=== PATIENT | male | born 1960 | race Caucasian/White ===

== ENCOUNTER 2017-08-22 09:09 | Inpatient (IN) | payer OTHER ==
[2017-08-22] MEDS ORDERED: ACETAMINOPHEN 325 MG TAB PO ×2 (10:00→10:30)
[2017-08-22] MEDS ORDERED: ONDANSETRON 4 MG INJ IV (10:00)
[2017-08-22] MEDS ORDERED: FUROSEMIDE 40 MG INJ IV (10:30)
[2017-08-22] MEDS ORDERED: NACL 0.9% 3 ML SYG IV (10:30)
[2017-08-22] MEDS ORDERED: NITROGLYCERIN (SL) 0.4 MG TAB SL (10:30)
[2017-08-22] MEDS: ASPIRIN 81 MG TAB PO (10:51)
[2017-08-22] MEDS: ENOXAPARIN 40 MG/0.4 ML SYG SC (10:51)
[2017-08-22] MEDS ORDERED: GLUCAGON 1 MG INJ IM (11:30)
[2017-08-22] MEDS ORDERED: DEXTROSE 50% 50 ML SYRINGE IV (11:30)
[2017-08-22] MEDS ORDERED: GLUCOSE GEL 15 GRAM TUBE BUCCAL (11:30)
[2017-08-22] MEDS ORDERED: GLUCOSE GEL 15 GRAM TUBE PO ×2 (11:30)
[2017-08-22] MEDS: INSULIN ASPART [NOVOLOG] 3 ML PEN SC ×5 (11:49→21:00)
[2017-08-22] MEDS: FUROSEMIDE 40 MG INJ IV (17:47)
[2017-08-22] MEDS: ATORVASTATIN 20 MG TAB PO (21:22)
[2017-08-23] MEDS: ACCU-CHEK XX ×2 (02:22→20:45)
[2017-08-23 05:16] LABS: ADD MAN DIFF? NO
[2017-08-23 05:18] LABS: BASOPHIL # 0.1 10^3/ul (0.0-0.1); BASOPHILS % 1.4 % (0.0-2.0); EOSINOPHILS # 0.2 10^3/ul (0.0-0.5); EOSINOPHILS % 2.7 % (0.0-7.0); HEMATOCRIT 38.8 % (42.0-52.0); HEMOGLOBIN 13.3 g/dl (14.0-18.0); LYMPHOCYTES # 2.3 10^3/ul (0.8-2.9); LYMPHOCYTES % 29.3 % (15.0-51.0); MEAN CORPUSCULAR HEMOGLOBIN 31.6 pg (29.0-33.0); MEAN CORPUSCULAR HGB CONC 34.3 g/dl (32.0-37.0); MEAN CORPUSCULAR VOLUME 92.2 fl (82.0-101.0); MEAN PLATELET VOLUME 11.4 fl (7.4-10.4); MONOCYTE # 0.8 10^3/ul (0.3-0.9); MONOCYTES % 9.5 % (0.0-11.0); NEUTROPHIL # 4.5 10^3/ul (1.6-7.5); PLATELET COUNT 148 10^3/UL (140-415); RED BLOOD COUNT 4.21 10^6/ul (4.70-6.10); RED CELL DISTRIBUTION WIDTH 12.3 % (11.5-14.5)
[2017-08-23 05:18] LABS: WHITE BLOOD COUNT 7.9 10^3/ul (4.8-10.8)
[2017-08-23 05:40] LABS: ANION GAP 16 (8-16); BLOOD UREA NITROGEN 23 mg/dl (7-20); CALCIUM 9.1 mg/dl (8.4-10.2); CARBON DIOXIDE 27 mmol/L (21-31); CHLORIDE 104 mmol/L (97-110); GLUCOSE 151 mg/dl (70-220); POTASSIUM 4.1 mmol/L (3.5-5.1); SODIUM 143 mmol/L (135-144)
[2017-08-23] MEDS: FUROSEMIDE 40 MG INJ IV (06:00)
[2017-08-23] MEDS: INSULIN ASPART [NOVOLOG] 3 ML PEN SC ×7 (07:22→20:44)
[2017-08-23] MEDS: DEXTROSE 5%-0.9% NACL 1,000 ML IV (07:23)
[2017-08-23] MEDS: ASPIRIN 81 MG TAB PO (08:39)
[2017-08-23] MEDS: LOSARTAN 25 MG TAB PO (08:39)
[2017-08-23] MEDS: ENOXAPARIN 40 MG/0.4 ML SYG SC (08:42)
[2017-08-23] MEDS ORDERED: LIDOCAINE 1% (MDV) 20 ML INJ (10:28)
[2017-08-23] MEDS ORDERED: IODIXANOL LOCM 100 ML BTL (10:28)
[2017-08-23] MEDS ORDERED: HEPARIN 1000 UNITS/ML 10 ML INJ (10:28)
[2017-08-23] MEDS ORDERED: NITROGLYCERIN (IC) 100 MCG/ML INJ (10:29)
[2017-08-23] MEDS ORDERED: FENTAnyl 50 MCG/ML VIAL (10:29)
[2017-08-23] MEDS ORDERED: MIDAZOLAM 1 MG/ML 2 ML INJ (10:29)
[2017-08-23] MEDS ORDERED: VERAPAMIL 5 MG INJ (10:29)
[2017-08-23] MEDS ORDERED: SOD CHLORIDE 0.9% 500 ML (10:47)
[2017-08-23] MEDS ORDERED: CEFAZOLIN 2 GM/50 ML (PMX) 50 ML IVPB (12:00)
[2017-08-23] MEDS ORDERED: HEPARIN 1000 UNITS/ML 10 ML INJ IV (12:00)
[2017-08-23 12:36] LABS: ADD MAN DIFF? NO
[2017-08-23 12:39] LABS: BASOPHIL # 0.1 10^3/ul (0.0-0.1); EOSINOPHILS # 0.1 10^3/ul (0.0-0.5); EOSINOPHILS % 0.6 % (0.0-7.0); HEMATOCRIT 40.8 % (42.0-52.0); HEMOGLOBIN 14.2 g/dl (14.0-18.0); LYMPHOCYTES # 2.1 10^3/ul (0.8-2.9); LYMPHOCYTES % 18.3 % (15.0-51.0); MEAN CORPUSCULAR HEMOGLOBIN 32.1 pg (29.0-33.0); MEAN CORPUSCULAR HGB CONC 34.8 g/dl (32.0-37.0); MEAN CORPUSCULAR VOLUME 92.3 fl (82.0-101.0); MEAN PLATELET VOLUME 11.2 fl (7.4-10.4); MONOCYTE # 0.8 10^3/ul (0.3-0.9); MONOCYTES % 6.8 % (0.0-11.0); NEUTROPHIL # 8.4 10^3/ul (1.6-7.5); PLATELET COUNT 147 10^3/UL (140-415); RED BLOOD COUNT 4.42 10^6/ul (4.70-6.10)
[2017-08-23 12:39] LABS: WHITE BLOOD COUNT 11.5 10^3/ul (4.8-10.8)
[2017-08-23 12:59] LABS: PROTIME 14.4 Sec (11.9-14.9); PT RATIO 1.1
[2017-08-23 13:01] LABS: PARTIAL THROMBOPLASTIN TIME 66.7 Sec (25.0-35.0)
[2017-08-23] MEDS: HEPARIN 25000 UNITS/250 ML 250 ML IV (16:25)
[2017-08-23] MEDS: FUROSEMIDE 20 MG TAB PO (16:30)
[2017-08-23] MEDS: ATORVASTATIN 20 MG TAB PO (20:36)
[2017-08-23 23:08] LABS: INR 1.09; PROTIME 14.3 Sec (11.9-14.9); PT RATIO 1.1
[2017-08-23 23:09] LABS: PARTIAL THROMBOPLASTIN TIME 49.6 Sec (25.0-35.0)
[2017-08-24] MEDS: INSULIN ASPART [NOVOLOG] 3 ML PEN SC ×9 (01:00→21:00)
[2017-08-24 07:15] LABS: ANION GAP 17 (8-16); BLOOD UREA NITROGEN 19 mg/dl (7-20); CALCIUM 9.2 mg/dl (8.4-10.2); CARBON DIOXIDE 27 mmol/L (21-31); CHLORIDE 104 mmol/L (97-110); CREATININE 0.89 mg/dl (0.61-1.24); GLUCOSE 190 mg/dl (70-220); POTASSIUM 4.5 mmol/L (3.5-5.1); SODIUM 143 mmol/L (135-144)
[2017-08-24 07:17] LABS: PARTIAL THROMBOPLASTIN TIME 69.2 Sec (25.0-35.0)
[2017-08-24] MEDS: ASPIRIN 81 MG TAB PO (08:10)
[2017-08-24] MEDS ORDERED: HEPARIN 1000 UNITS/ML 10 ML INJ ×3 (08:28→14:24)
[2017-08-24] MEDS ORDERED: VANCOMYCIN 1 GM INJ (08:28)
[2017-08-24] MEDS ORDERED: PAPAVERINE 60 MG INJ (08:28)
[2017-08-24] MEDS ORDERED: HEPARIN 1000 UNITS/NS (A-LINE) 0 ML (08:28)
[2017-08-24] MEDS: HEPARIN 1000 UNITS/ML 10 ML INJ IRR (13:00)
[2017-08-24] MEDS: PAPAVERINE 60 MG INJ IRR (13:00)
[2017-08-24] MEDS: VANCOMYCIN 500MG INJ IMPLANTED (13:00)
[2017-08-24] MEDS ORDERED: MIDAZOLAM 5 ML ×2 (13:18→15:07)
[2017-08-24] MEDS ORDERED: PHENYLephrine (100 MCG/ML) 5ML SYG ×5 (13:24→16:29)
[2017-08-24] MEDS ORDERED: MAGNESIUM SULFATE (MG) 50% 10 ML INJ (13:27)
[2017-08-24] MEDS ORDERED: ALBUMIN HUMAN 25% 200 ML (13:27)
[2017-08-24] MEDS ORDERED: PHENYLephrine 10 MG INJ (13:27)
[2017-08-24] MEDS ORDERED: LIDOCAINE 100 MG SYRINGE (13:27)
[2017-08-24] MEDS ORDERED: POTASSIUM CHLORIDE 40 MEQ INJ (13:27)
[2017-08-24] MEDS ORDERED: CA CHLORIDE 10% 10 ML SYRINGE (13:28)
[2017-08-24] MEDS ORDERED: MANNITOL 20% 250 ML IV (13:28)
[2017-08-24] MEDS ORDERED: NA BICARBONATE 8.4% 50 ML SYG (13:29)
[2017-08-24] MEDS ORDERED: AMINOCAPROIC ACID 5 GM INJ (13:29)
[2017-08-24] MEDS ORDERED: PHENYLephrine 20MG IN 250 ML 250 ML IV (13:30)
[2017-08-24] MEDS: NORepinephrine 8MG/250 ML (PMX 250 ML IV (13:30)
[2017-08-24] MEDS: ASPIRIN 600 MG SUPP PR (13:30)
[2017-08-24] MEDS: HEPARIN (10000 UNITS/ML) 10,000 UNIT, MILRINONE LACTATE 10 MG in SOD CHLORIDE 0.9% 1,00... SC (13:30)
[2017-08-24] MEDS: INSULIN HUMAN REGULAR 100 UNIT in SOD CHLORIDE 0.9% 99 ML IVPB (13:30)
[2017-08-24] MEDS: EPINEPHrine 4 MG in DEXTROSE 5% 246 ML IV ×2 (13:30→19:05)
[2017-08-24] MEDS: PHENYLephrine 20 MG in DEXTROSE 5% 250 ML IV (13:30)
[2017-08-24] MEDS: MILRINONE LACTATE 2 MG in SOD CHLORIDE 0.9% 50 ML IV (13:30)
[2017-08-24] MEDS ORDERED: CEFAZOLIN 1 GM INJ ×2 (14:05→16:30)
[2017-08-24] MEDS ORDERED: FUROSEMIDE 20 MG INJ ×2 (15:13→15:52)
[2017-08-24] MEDS ORDERED: PROTAMINE 250 MG INJ (16:29)
[2017-08-24] MEDS ORDERED: ROCURONIUM 50 MG INJ (17:51)
[2017-08-24] MEDS ORDERED: LIDOCAINE 2% (SDV) 5 ML INJ (17:51)
[2017-08-24] MEDS ORDERED: ETOMIDATE 20 MG INJ (17:51)
[2017-08-24] MEDS ORDERED: ALBUMIN HUMAN 5% 250 ML (18:37)
[2017-08-24] MEDS: ALBUMIN HUMAN 5% 250 ML IV ×2 (18:51→22:25)
[2017-08-24] MEDS ORDERED: NITROGLYCERIN 50 MG/D5W (PMX) 250 ML IV ×2 (19:00→19:30)
[2017-08-24] MEDS: DOPamine-D5W 1.6 MG/ML 250 ML IV (19:06)
[2017-08-24 19:07] LABS: ADD MAN DIFF? NO
[2017-08-24 19:10] LABS: ABNORMAL IP MESSAGE 1; BASOPHIL # 0.1 10^3/ul (0.0-0.1); BASOPHILS % 0.5 % (0.0-2.0); EOSINOPHILS # 0.1 10^3/ul (0.0-0.5); EOSINOPHILS % 0.8 % (0.0-7.0); HEMATOCRIT 34.1 % (42.0-52.0); HEMOGLOBIN 11.9 g/dl (14.0-18.0); LYMPHOCYTES # 2.8 10^3/ul (0.8-2.9); LYMPHOCYTES % 15.4 % (15.0-51.0); MEAN CORPUSCULAR HEMOGLOBIN 32.5 pg (29.0-33.0); MEAN CORPUSCULAR HGB CONC 34.9 g/dl (32.0-37.0); MEAN CORPUSCULAR VOLUME 93.2 fl (82.0-101.0); MEAN PLATELET VOLUME 11.5 fl (7.4-10.4); MONOCYTE # 1.2 10^3/ul (0.3-0.9); MONOCYTES % 6.5 % (0.0-11.0); NEUTROPHILS % 76.3 % (39.0-77.0); PLATELET COUNT 84 10^3/UL (140-415); POSITIVE DIFF @See below; RED BLOOD COUNT 3.66 10^6/ul (4.70-6.10); RED CELL DISTRIBUTION WIDTH 12.1 % (11.5-14.5)
[2017-08-24 19:10] LABS: WHITE BLOOD COUNT 18.4 10^3/ul (4.8-10.8)
[2017-08-24 19:27] LABS: ANION GAP 21 (8-16); BLOOD UREA NITROGEN 16 mg/dl (7-20); CALCIUM 8.2 mg/dl (8.4-10.2); CARBON DIOXIDE 25 mmol/L (21-31); CHLORIDE 109 mmol/L (97-110); CREATININE 0.77 mg/dl (0.61-1.24); GLUCOSE 65 mg/dl (70-220); MAGNESIUM 2.5 mg/dl (1.7-2.5); POTASSIUM 3.2 mmol/L (3.5-5.1); SODIUM 152 mmol/L (135-144)
[2017-08-24] MEDS ORDERED: ACETAMINOPHEN 650MG/20.3ML CUP NGT (19:30)
[2017-08-24] MEDS ORDERED: ACETAMINOPHEN 325 MG TAB PO (19:30)
[2017-08-24] MEDS ORDERED: EPINEPHrine 4 MG in DEXTROSE 5% 246 ML IV (19:30)
[2017-08-24] MEDS ORDERED: HYDROmorphONE 0.5 MG/0.5 ML SYG IV ×2 (19:30)
[2017-08-24] MEDS ORDERED: DEXTROSE 50% 50 ML SYRINGE IV ×2 (19:30)
[2017-08-24] MEDS ORDERED: POTASSIUM CHLORIDE 50 ML IVPB (19:30)
[2017-08-24 19:54] LABS: HEMATOCRIT 34.2 % (42.0-52.0)
[2017-08-24] MEDS: POTASSIUM CHLORIDE 40 MEQ, CALCIUM CHLORIDE 10% 1 GM in DEXTROSE 5%-0.225% NACL 1,000 ML IV (20:24)
[2017-08-24] MEDS: MILRINONE LACTATE 100 ML IV (20:24)
[2017-08-24 20:28] LABS: PT RATIO 1.4
[2017-08-24] MEDS ORDERED: DOPamine 800 MG in DEXTROSE 5% 230 ML IV (20:30)
[2017-08-24 20:31] LABS: AADO2 Arterial 352.9 mmHg (7.0-24.0); Arterial Base Excess -3.3 mmol/L (-3.0-3); Arterial Blood Gas Oxygen Sat 98.6 mmHG (95.0-98.0); Arterial COHb 0.3 % (0.0-3.0); Arterial Fraction of Oxyhgb 97.9 % (93.0-99.0); Arterial HCO3 23.3 mmol/L (22.0-26.0); Arterial MetHb 0.4 % (0.0-1.5); Arterial Total Hemglobin 12.9 g/dl (12.0-18.0); MODE VENT - AC; Site A-Line
[2017-08-24] MEDS: DEXTROSE 50% 50 ML SYRINGE IV (20:41)
[2017-08-24] MEDS: ACCU-CHEK XX ×4 (20:45→22:52)
[2017-08-24] MEDS: CEFAZOLIN 1 GM/50 ML (PMX) 50 ML IVPB (20:54)
[2017-08-24] MEDS: ATORVASTATIN 40 MG TAB PO (21:00)
[2017-08-24] MEDS: POTASSIUM CHLORIDE 30 MEQ in SOD CHLORIDE 0.9% 150 ML IVPB (21:38)
[2017-08-24] MEDS: PROPOFOL 100 ML IV (22:00)
[2017-08-24 22:13] LABS: PARTIAL THROMBOPLASTIN TIME 26.5 Sec (25.0-35.0); PROTIME 18.1 Sec (11.9-14.9)
[2017-08-24 22:14] LABS: INR 1.46
[2017-08-24] MEDS: PHENYLephrine 20MG IN 250 ML 250 ML IV (23:06)
[2017-08-25] MEDS: INSULIN HUMAN REGULAR 100 UNIT in SOD CHLORIDE 0.9% 99 ML IV (00:24)
[2017-08-25] MEDS: ACCU-CHEK XX ×24 (00:25→23:16)
[2017-08-25] MEDS: PHENYLephrine 20MG IN 250 ML 250 ML IV (00:55)
[2017-08-25] MEDS: ALBUMIN HUMAN 5% 250 ML IV ×4 (01:16→14:53)
[2017-08-25] MEDS: KETOROLAC 15 MG INJ IV (01:53)
[2017-08-25] MEDS ORDERED: ACETAMINOPHEN 650 MG SUPP PR (02:00)
[2017-08-25] MEDS: PHENYLephrine 80 MG in DEXTROSE 5% 492 ML IV ×2 (02:15→06:36)
[2017-08-25 02:24] LABS: POTASSIUM 3.9 mmol/L (3.5-5.1)
[2017-08-25] MEDS: CEFAZOLIN 1 GM/50 ML (PMX) 50 ML IVPB ×2 (03:05→10:43)
[2017-08-25] MEDS: POTASSIUM CHLORIDE 50 ML IVPB (03:45)
[2017-08-25 05:08] LABS: ADD MAN DIFF? NO
[2017-08-25 05:12] LABS: WHITE BLOOD COUNT 14.2 10^3/ul (4.8-10.8)
[2017-08-25 05:12] LABS: ABNORMAL IP MESSAGE 1; BASOPHIL # 0.1 10^3/ul (0.0-0.1); BASOPHILS % 0.4 % (0.0-2.0); EOSINOPHILS % 0.1 % (0.0-7.0); HEMATOCRIT 28.3 % (42.0-52.0); HEMOGLOBIN 9.8 g/dl (14.0-18.0); LYMPHOCYTES # 0.7 10^3/ul (0.8-2.9); LYMPHOCYTES % 4.8 % (15.0-51.0); MEAN CORPUSCULAR HEMOGLOBIN 32.1 pg (29.0-33.0); MEAN CORPUSCULAR HGB CONC 34.6 g/dl (32.0-37.0); MEAN CORPUSCULAR VOLUME 92.8 fl (82.0-101.0); MEAN PLATELET VOLUME 11.7 fl (7.4-10.4); MONOCYTE # 1.7 10^3/ul (0.3-0.9); MONOCYTES % 12.2 % (0.0-11.0); NEUTROPHIL # 11.7 10^3/ul (1.6-7.5); NEUTROPHILS % 82.2 % (39.0-77.0); PLATELET COUNT 82 10^3/UL (140-415); POSITIVE DIFF @See below; RED BLOOD COUNT 3.05 10^6/ul (4.70-6.10); RED CELL DISTRIBUTION WIDTH 12.3 % (11.5-14.5)
[2017-08-25 05:25] LABS: INR 1.58; PROTIME 19.2 Sec (11.9-14.9); PT RATIO 1.5
[2017-08-25 05:26] LABS: PARTIAL THROMBOPLASTIN TIME 35.7 Sec (25.0-35.0)
[2017-08-25 05:32] LABS: ANION GAP 18 (8-16); BLOOD UREA NITROGEN 17 mg/dl (7-20); CALCIUM 8.9 mg/dl (8.4-10.2); CARBON DIOXIDE 24 mmol/L (21-31); CHLORIDE 111 mmol/L (97-110); CREATININE 0.97 mg/dl (0.61-1.24); GLUCOSE 142 mg/dl (70-220); MAGNESIUM 1.9 mg/dl (1.7-2.5); POTASSIUM 3.6 mmol/L (3.5-5.1); SODIUM 149 mmol/L (135-144)
[2017-08-25 05:36] LABS: AADO2 Arterial 143.3 mmHg (7.0-24.0); Arterial Base Excess -0.4 mmol/L (-3.0-3); Arterial Blood Gas Oxygen Sat 98.5 mmHG (95.0-98.0); Arterial COHb 0.3 % (0.0-3.0); Arterial Fraction of Oxyhgb 97.7 % (93.0-99.0); Arterial HCO3 21.7 mmol/L (22.0-26.0); Arterial MetHb 0.5 % (0.0-1.5); Arterial pCO2 27.8 mmhg (35-45); Blood Gas PS 6; MODE VENT - CPAP; Site A-Line
[2017-08-25] MEDS: OXYCODONE/ACETAMINOPHEN (5/325) TAB PO ×6 (06:17→23:59)
[2017-08-25 08:18] LABS: MODE VENT - AC; MetHgb Mixed Venous 0.4 %; Mixed Venous COHb 0.1 %; Mixed Venous Fraction OxyHgb 65.9 %; Mixed Venous Oxygen Sat 66.2 mmHG (65.0-75.0); Mixed Venous Total Hemglobin 13.1 g/dl; Sample Type BLMV; Site PAL
[2017-08-25 08:58] LABS: POTASSIUM 4.4 mmol/L (3.5-5.1)
[2017-08-25] MEDS: PROPOFOL 100 ML IV (09:29)
[2017-08-25] MEDS: ASPIRIN 81 MG TAB PO (09:32)
[2017-08-25] MEDS: ENOXAPARIN 40 MG/0.4 ML SYG SC (10:44)
[2017-08-25] MEDS ORDERED: ASPIRIN 81 MG TAB PO (11:00)
[2017-08-25] MEDS: POTASSIUM CHLORIDE 10 MEQ in DEXTROSE 5% 50 ML IV (11:26)
[2017-08-25] MEDS ORDERED: ALBUMIN HUMAN 5% 500 ML (13:47)
[2017-08-25] MEDS: POTASSIUM CHLORIDE 40 MEQ, CALCIUM CHLORIDE 10% 1 GM in DEXTROSE 5%-0.225% NACL 1,000 ML IV (15:52)
[2017-08-25 19:10] LABS: HEMATOCRIT 24.2 % (42.0-52.0)
[2017-08-25] MEDS: ATORVASTATIN 40 MG TAB PO (21:00)
[2017-08-26] MEDS: ACCU-CHEK XX ×9 (00:01→08:26)
[2017-08-26] MEDS: INSULIN HUMAN REGULAR 100 UNIT in SOD CHLORIDE 0.9% 99 ML IV (00:31)
[2017-08-26] MEDS: OXYCODONE/ACETAMINOPHEN (5/325) TAB PO ×2 (03:48→07:25)
[2017-08-26 04:58] LABS: ADD MAN DIFF? NO
[2017-08-26 05:03] LABS: ABNORMAL IP MESSAGE 1; BASOPHIL # 0.1 10^3/ul (0.0-0.1); BASOPHILS % 0.6 % (0.0-2.0); EOSINOPHILS # 0.4 10^3/ul (0.0-0.5); EOSINOPHILS % 2.6 % (0.0-7.0); HEMATOCRIT 25.1 % (42.0-52.0); HEMOGLOBIN 8.7 g/dl (14.0-18.0); LYMPHOCYTES # 2.7 10^3/ul (0.8-2.9); LYMPHOCYTES % 16.5 % (15.0-51.0); MEAN CORPUSCULAR HEMOGLOBIN 32.6 pg (29.0-33.0); MEAN CORPUSCULAR HGB CONC 34.7 g/dl (32.0-37.0); MEAN PLATELET VOLUME 12.2 fl (7.4-10.4); MONOCYTE # 1.6 10^3/ul (0.3-0.9); MONOCYTES % 9.9 % (0.0-11.0); NEUTROPHIL # 11.5 10^3/ul (1.6-7.5); NEUTROPHILS % 70.1 % (39.0-77.0); PLATELET COUNT 67 10^3/UL (140-415); POSITIVE DIFF @See below; RED BLOOD COUNT 2.67 10^6/ul (4.70-6.10); RED CELL DISTRIBUTION WIDTH 12.7 % (11.5-14.5)
[2017-08-26 05:03] LABS: WHITE BLOOD COUNT 16.3 10^3/ul (4.8-10.8)
[2017-08-26 05:18] LABS: MAGNESIUM 1.6 mg/dl (1.7-2.5)
[2017-08-26 05:19] LABS: ANION GAP 14 (8-16); BLOOD UREA NITROGEN 16 mg/dl (7-20); CARBON DIOXIDE 22 mmol/L (21-31); CHLORIDE 108 mmol/L (97-110); CREATININE 0.78 mg/dl (0.61-1.24); GLUCOSE 114 mg/dl (70-220); POTASSIUM 4.4 mmol/L (3.5-5.1); SODIUM 140 mmol/L (135-144)
[2017-08-26] MEDS: KETOROLAC 15 MG INJ IV (05:40)
[2017-08-26] MEDS: MAGNESIUM SULFATE 1 GM/D5W 100 ML IVPB ×2 (05:42→07:21)
[2017-08-26] MEDS ORDERED: MAGNESIUM SULFATE 2 GM/50 ML 50 ML IVPB (08:00)
[2017-08-26] MEDS: ONDANSETRON 4 MG INJ IV ×3 (08:22→21:34)
[2017-08-26] MEDS: POTASSIUM CHLORIDE 40 MEQ, CALCIUM CHLORIDE 10% 1 GM in DEXTROSE 5%-0.225% NACL 1,000 ML IV ×2 (08:26→09:30)
[2017-08-26] MEDS: ASPIRIN 81 MG TAB PO (08:27)
[2017-08-26] MEDS: ENOXAPARIN 40 MG/0.4 ML SYG SC (08:27)
[2017-08-26] MEDS: INSULIN ASPART [NOVOLOG] 3 ML PEN SC ×3 (13:57→21:30)
[2017-08-26] MEDS: METOCLOPRAMIDE 10 MG INJ IV ×2 (14:46→19:00)
[2017-08-26 17:14] LABS: AMYLASE 37 U/L (11-123)
[2017-08-26] MEDS: SOD CHLORIDE 0.9% 500 ML IV ×3 (17:27→23:00)
[2017-08-26] MEDS: ATORVASTATIN 40 MG TAB PO (21:00)
[2017-08-27] MEDS: PROCHLORPERAZINE 10 MG INJ IV ×2 (00:08→08:46)
[2017-08-27] MEDS: INSULIN ASPART [NOVOLOG] 3 ML PEN SC ×2 (01:22→05:22)
[2017-08-27] MEDS: ACCU-CHEK XX ×17 (02:00→22:30)
[2017-08-27] MEDS: ONDANSETRON 4 MG INJ IV (04:21)
[2017-08-27 04:59] LABS: ADD MAN DIFF? NO
[2017-08-27 05:02] LABS: ABNORMAL IP MESSAGE 1; BASOPHILS % 0.2 % (0.0-2.0); HEMATOCRIT 24.5 % (42.0-52.0); HEMOGLOBIN 8.4 g/dl (14.0-18.0); LYMPHOCYTES % 7.6 % (15.0-51.0); MEAN CORPUSCULAR HEMOGLOBIN 32.1 pg (29.0-33.0); MEAN CORPUSCULAR HGB CONC 34.3 g/dl (32.0-37.0); MEAN CORPUSCULAR VOLUME 93.5 fl (82.0-101.0); MEAN PLATELET VOLUME 12.9 fl (7.4-10.4); MONOCYTE # 1.1 10^3/ul (0.3-0.9); MONOCYTES % 8.6 % (0.0-11.0); NEUTROPHIL # 10.4 10^3/ul (1.6-7.5); PLATELET COUNT 57 10^3/UL (140-415); POSITIVE DIFF @See below; RED BLOOD COUNT 2.62 10^6/ul (4.70-6.10)
[2017-08-27 05:02] LABS: WHITE BLOOD COUNT 12.5 10^3/ul (4.8-10.8)
[2017-08-27 05:24] LABS: ANION GAP 16 (8-16); BLOOD UREA NITROGEN 33 mg/dl (7-20); CALCIUM 8.7 mg/dl (8.4-10.2); CARBON DIOXIDE 23 mmol/L (21-31); CHLORIDE 103 mmol/L (97-110); CREATININE 1.11 mg/dl (0.61-1.24); GLUCOSE 249 mg/dl (70-220); SODIUM 136 mmol/L (135-144)
[2017-08-27 05:25] LABS: MAGNESIUM 2.2 mg/dl (1.7-2.5)
[2017-08-27 05:35] LABS: POTASSIUM 6.1 mmol/L (3.5-5.1)
[2017-08-27] MEDS: SOD CHLORIDE 0.9% 1,000 ML IV ×3 (06:44→20:26)
[2017-08-27] MEDS ORDERED: DEXTROSE 50% 50 ML SYRINGE IV (07:00)
[2017-08-27] MEDS: DEXTROSE 50% 50 ML SYRINGE IV (08:28)
[2017-08-27] MEDS ORDERED: CEPASTAT LOZENGE MT (08:30)
[2017-08-27] MEDS: INSULIN REGULAR, HUMAN 100 UNIT/1 ML 3ML VIAL IVP (08:42)
[2017-08-27] MEDS: PHENOL 1.4% SOLN 180 ML BTL MT (08:47)
[2017-08-27] MEDS: SOD CHLORIDE 0.9% 250 ML IV (09:06)
[2017-08-27 09:16] LABS: ALANINE AMINOTRANSFERASE 764 IU/L (13-69); ALBUMIN 3.5 g/dl (3.3-4.9); ALKALINE PHOSPHATASE 45 IU/L (42-121); BILIRUBIN,INDIRECT 1.9 mg/dl (0-1.1); BILIRUBIN,TOTAL 1.9 mg/dl (0.2-1.3); TOTAL PROTEIN 5.8 g/dl (6.1-8.1)
[2017-08-27 09:23] LABS: ASPARTATE AMINO TRANSFERASE 1067 IU/L (15-46)
[2017-08-27] MEDS: METOPROLOL (XL) 25 MG TAB PO (09:51)
[2017-08-27] MEDS: ASPIRIN 81 MG TAB PO (09:51)
[2017-08-27] MEDS: ENOXAPARIN 40 MG/0.4 ML SYG SC (09:53)
[2017-08-27] MEDS: INSULIN HUMAN REGULAR 100 UNIT in SOD CHLORIDE 0.9% 99 ML IV (10:19)
[2017-08-27 10:49] LABS: POTASSIUM 5.5 mmol/L (3.5-5.1)
[2017-08-27] MEDS: MAGNESIUM SULFATE 4 GM in DEXTROSE 5% 100 ML IV (11:08)
[2017-08-27] MEDS: DOPamine-D5W 1.6 MG/ML 250 ML IV (12:28)
[2017-08-27] MEDS: SOD CHLORIDE 0.9% 500 ML IV (17:07)
[2017-08-27] MEDS: ATORVASTATIN 40 MG TAB PO (21:00)
[2017-08-28] MEDS: ACCU-CHEK XX ×14 (00:14→12:30)
[2017-08-28] MEDS ORDERED: LORAZEPAM 2 MG INJ IV (01:30)
[2017-08-28] MEDS: DOPamine-D5W 1.6 MG/ML 250 ML IV (02:38)
[2017-08-28] MEDS: ONDANSETRON 4 MG INJ IV ×3 (03:10→14:27)
[2017-08-28] MEDS: PROCHLORPERAZINE 10 MG INJ IV (04:04)
[2017-08-28 05:07] LABS: ADD MAN DIFF? NO
[2017-08-28 05:10] LABS: WHITE BLOOD COUNT 12.9 10^3/ul (4.8-10.8)
[2017-08-28 05:10] LABS: ABNORMAL IP MESSAGE 1; BASOPHILS % 0.2 % (0.0-2.0); EOSINOPHILS # 0.1 10^3/ul (0.0-0.5); EOSINOPHILS % 0.6 % (0.0-7.0); HEMATOCRIT 22.9 % (42.0-52.0); HEMOGLOBIN 7.8 g/dl (14.0-18.0); LYMPHOCYTES # 1.3 10^3/ul (0.8-2.9); LYMPHOCYTES % 10.3 % (15.0-51.0); MEAN CORPUSCULAR HEMOGLOBIN 32.1 pg (29.0-33.0); MEAN CORPUSCULAR HGB CONC 34.1 g/dl (32.0-37.0); MEAN CORPUSCULAR VOLUME 94.2 fl (82.0-101.0); MEAN PLATELET VOLUME 12.6 fl (7.4-10.4); MONOCYTE # 1.5 10^3/ul (0.3-0.9); MONOCYTES % 11.3 % (0.0-11.0); NEUTROPHIL # 9.9 10^3/ul (1.6-7.5); NEUTROPHILS % 76.9 % (39.0-77.0); PLATELET COUNT 49 10^3/UL (140-415); POSITIVE DIFF @See below; RED BLOOD COUNT 2.43 10^6/ul (4.70-6.10); RED CELL DISTRIBUTION WIDTH 13.2 % (11.5-14.5)
[2017-08-28 05:50] LABS: ALBUMIN 3.4 g/dl (3.3-4.9); ALBUMIN/GLOBULIN RATIO 1.47; ALKALINE PHOSPHATASE 45 IU/L (42-121); ANION GAP 18 (8-16); BILIRUBIN,INDIRECT 1.7 mg/dl (0-1.1); BILIRUBIN,TOTAL 1.7 mg/dl (0.2-1.3); BLOOD UREA NITROGEN 39 mg/dl (7-20); CALCIUM 8.1 mg/dl (8.4-10.2); CARBON DIOXIDE 23 mmol/L (21-31); CHLORIDE 106 mmol/L (97-110); CREATININE 1.13 mg/dl (0.61-1.24); GLUCOSE 103 mg/dl (70-220); POTASSIUM 4.6 mmol/L (3.5-5.1); SODIUM 142 mmol/L (135-144); TOTAL PROTEIN 5.7 g/dl (6.1-8.1)
[2017-08-28 06:09] LABS: ALANINE AMINOTRANSFERASE 1087 IU/L (13-69); ASPARTATE AMINO TRANSFERASE 1017 IU/L (15-46)
[2017-08-28 07:45] LABS: LIPASE 31 U/L (23-300)
[2017-08-28 07:46] LABS: MAGNESIUM 2.6 mg/dl (1.7-2.5)
[2017-08-28] MEDS: METOPROLOL (XL) 25 MG TAB PO (09:00)
[2017-08-28] MEDS: ASPIRIN 81 MG TAB PO (09:50)
[2017-08-28 10:23] LABS: HAAIG REFLEX REFLEX FILED
[2017-08-28 10:28] LABS: HEMOGLOBIN 7.8 g/dl (14.0-18.0)
[2017-08-28 10:37] LABS: HEMOGLOBIN A1C 7.1 % (0-5.9)
[2017-08-28 10:48] LABS: INR 1.61; PROTIME 19.5 Sec (11.9-14.9); PT RATIO 1.5
[2017-08-28 10:49] LABS: PARTIAL THROMBOPLASTIN TIME 30.2 Sec (25.0-35.0)
[2017-08-28] MEDS: INSULIN ASPART [NOVOLOG] 3 ML PEN SC ×5 (11:30→22:00)
[2017-08-28 13:33] LABS: HEPATITIS B SURFACE ANTIGEN NEGATIVE (NEGATIVE)
[2017-08-28 13:51] LABS: HEPATITIS B CORE ANTIBODY NEGATIVE (NEGATIVE); HEPATITIS C VIRAL ANTIBODY NEGATIVE (NEGATIVE)
[2017-08-28] MEDS: SOD CHLORIDE 0.9% 1,000 ML IV ×2 (14:28→23:58)
[2017-08-29] MEDS: ACCU-CHEK XX (01:42)
[2017-08-29 05:17] LABS: ADD MAN DIFF? NO
[2017-08-29 05:19] LABS: WHITE BLOOD COUNT 10.5 10^3/ul (4.8-10.8)
[2017-08-29 05:19] LABS: ABNORMAL IP MESSAGE 1; BASOPHILS % 0.2 % (0.0-2.0); EOSINOPHILS % 0.4 % (0.0-7.0); HEMOGLOBIN 8.1 g/dl (14.0-18.0); LYMPHOCYTES # 1.4 10^3/ul (0.8-2.9); LYMPHOCYTES % 13.4 % (15.0-51.0); MEAN CORPUSCULAR HGB CONC 33.8 g/dl (32.0-37.0); MEAN CORPUSCULAR VOLUME 94.9 fl (82.0-101.0); MEAN PLATELET VOLUME 13.3 fl (7.4-10.4); MONOCYTE # 1.4 10^3/ul (0.3-0.9); MONOCYTES % 13.4 % (0.0-11.0); NEUTROPHIL # 7.5 10^3/ul (1.6-7.5); NEUTROPHILS % 71.5 % (39.0-77.0); NUCLEATED RED BLOOD CELLS # 0.2 10^3/ul (0.0-0.0); NUCLEATED RED BLOOD CELLS% 1.5 /100WBC (0.0-0.0); POSITIVE DIFF @See below; RED BLOOD COUNT 2.53 10^6/ul (4.70-6.10); RED CELL DISTRIBUTION WIDTH 13.5 % (11.5-14.5)
[2017-08-29 05:31] LABS: PLATELET COUNT 25 10^3/UL (140-415)
[2017-08-29 05:58] LABS: ALBUMIN/GLOBULIN RATIO 1.25; ALKALINE PHOSPHATASE 68 IU/L (42-121); ANION GAP 18 (8-16); BILIRUBIN,INDIRECT 1.8 mg/dl (0-1.1); BILIRUBIN,TOTAL 1.8 mg/dl (0.2-1.3); BLOOD UREA NITROGEN 39 mg/dl (7-20); CALCIUM 7.6 mg/dl (8.4-10.2); CARBON DIOXIDE 19 mmol/L (21-31); CHLORIDE 109 mmol/L (97-110); CREATININE 0.97 mg/dl (0.61-1.24); GLUCOSE 203 mg/dl (70-220); POTASSIUM 4.5 mmol/L (3.5-5.1); SODIUM 141 mmol/L (135-144); TOTAL PROTEIN 5.4 g/dl (6.1-8.1)
[2017-08-29 06:17] LABS: ALANINE AMINOTRANSFERASE 1354 IU/L (13-69); ASPARTATE AMINO TRANSFERASE 840 IU/L (15-46)
[2017-08-29 06:28] LABS: PHOSPHORUS 3.4 mg/dl (2.5-4.9)
[2017-08-29 06:28] LABS: MAGNESIUM 2.4 mg/dl (1.7-2.5)
[2017-08-29] MEDS: ASPIRIN 81 MG TAB PO (08:14)
[2017-08-29] MEDS: METOPROLOL (XL) 25 MG TAB PO (08:15)
[2017-08-29] MEDS: INSULIN ASPART [NOVOLOG] 3 ML PEN SC ×9 (08:22→20:20)
[2017-08-29] MEDS: INSULIN GLARGINE [LANtus] 3 ML PEN SC (08:23)
[2017-08-29] MEDS: ONDANSETRON 4 MG INJ IV (11:13)
[2017-08-29] MEDS: FAMOTIDINE 20 MG TAB PO (11:13)
[2017-08-29 11:51] LABS: GAMMA GLUTAMYL TRANSPEPTIDASE 47 IU/L (0-50)
[2017-08-29 11:51] LABS: CREATINE KINASE 375 IU/L (23-200)
[2017-08-29 11:59] LABS: CK INDEX 0.6
[2017-08-29 12:28] LABS: CK-MB 2.22 ng/ml (0.0-2.4)
[2017-08-29 12:32] LABS: TROPONIN-I 0.687 ng/ml (0.00-0.12)
[2017-08-29 12:52] LABS: TYPE AND SCREEN 1 1
[2017-08-29] MEDS: DIPHENHYDRAMINE 50 MG INJ IV (13:01)
[2017-08-29] MEDS: ACETAMINOPHEN 325 MG TAB PO (13:03)
[2017-08-29] MEDS: SOD CHLORIDE 0.9% 250 ML IV* (13:03)
[2017-08-29] MEDS: SOD CHLORIDE 0.9% 1,000 ML IV (17:55)
[2017-08-30] MEDS: ACCU-CHEK XX ×2 (02:00→21:12)
[2017-08-30] MEDS: SOD CHLORIDE 0.9% 1,000 ML IV ×2 (06:46→17:38)
[2017-08-30] MEDS: INSULIN ASPART [NOVOLOG] 3 ML PEN SC ×7 (07:55→20:11)
[2017-08-30] MEDS: METOPROLOL (XL) 25 MG TAB PO (08:44)
[2017-08-30] MEDS: INSULIN GLARGINE [LANtus] 3 ML PEN SC (08:55)
[2017-08-30 14:26] LABS: HEPARIN INDUCED PLATELET AB NEGATIVE (NEGATIVE)
[2017-08-30 20:34] LABS: ADD MAN DIFF? NO
[2017-08-30 20:36] LABS: WHITE BLOOD COUNT 14.1 10^3/ul (4.8-10.8)
[2017-08-30 20:36] LABS: BASOPHIL # 0.1 10^3/ul (0.0-0.1); BASOPHILS % 0.4 % (0.0-2.0); EOSINOPHILS # 0.4 10^3/ul (0.0-0.5); EOSINOPHILS % 2.6 % (0.0-7.0); HEMATOCRIT 29.1 % (42.0-52.0); HEMOGLOBIN 9.8 g/dl (14.0-18.0); LYMPHOCYTES # 1.8 10^3/ul (0.8-2.9); LYMPHOCYTES % 12.5 % (15.0-51.0); MEAN CORPUSCULAR HEMOGLOBIN 32.3 pg (29.0-33.0); MEAN CORPUSCULAR HGB CONC 33.7 g/dl (32.0-37.0); MEAN PLATELET VOLUME 10.9 fl (7.4-10.4); MONOCYTE # 1.8 10^3/ul (0.3-0.9); MONOCYTES % 12.9 % (0.0-11.0); NEUTROPHIL # 9.5 10^3/ul (1.6-7.5); NEUTROPHILS % 67.6 % (39.0-77.0); NUCLEATED RED BLOOD CELLS # 0.4 10^3/ul (0.0-0.0); NUCLEATED RED BLOOD CELLS% 2.5 /100WBC (0.0-0.0); PLATELET COUNT 118 10^3/UL (140-415); RED BLOOD COUNT 3.03 10^6/ul (4.70-6.10); RED CELL DISTRIBUTION WIDTH 13.7 % (11.5-14.5)
[2017-08-30 20:54] LABS: ANION GAP 13 (8-16); BLOOD UREA NITROGEN 18 mg/dl (7-20); CALCIUM 7.8 mg/dl (8.4-10.2); CARBON DIOXIDE 25 mmol/L (21-31); CHLORIDE 107 mmol/L (97-110); CREATININE 0.73 mg/dl (0.61-1.24); GLUCOSE 141 mg/dl (70-220); SODIUM 141 mmol/L (135-144)
[2017-08-31 00:29] LABS: ASPARTATE AMINO TRANSFERASE 253 IU/L (15-46)
[2017-08-31 00:34] LABS: ALANINE AMINOTRANSFERASE 821 IU/L (13-69)
[2017-08-31] MEDS: INSULIN ASPART [NOVOLOG] 3 ML PEN SC ×6 (07:55→17:55)
[2017-08-31] MEDS: SOD CHLORIDE 0.9% 1,000 ML IV (08:13)
[2017-08-31] MEDS: INSULIN GLARGINE [LANtus] 3 ML PEN SC (08:22)
[2017-08-31] MEDS: METOPROLOL (XL) 25 MG TAB PO (08:56)
[2017-08-31 09:00] LABS: ADD UMIC NO; UR ASCORBIC ACID NEGATIVE (NEGATIVE); UR BILIRUBIN (Dip) NEGATIVE (NEGATIVE); UR BLOOD (Dip) NEGATIVE (NEGATIVE); UR CLARITY CLEAR (CLEAR); UR COLOR AMBER (YELLOW); UR GLUCOSE (Dip) 2+ mg/dL (NEGATIVE); UR KETONES (Dip) 1+ mg/dL (NEGATIVE); UR LEUKOCYTE ESTERASE (Dip) NEGATIVE Leu/ul (NEGATIVE); UR NITRITE (Dip) NEGATIVE (NEGATIVE); UR SPECIFIC GRAVITY (Dip) 1.025 (1.003-1.030); UR TOTAL PROTEIN (Dip) NEGATIVE (NEGATIVE); UR UROBILINOGEN (Dip) 2+ mg/dL (NEGATIVE)
[2017-08-31] MEDS: ASPIRIN 81 MG TAB PO (10:25)
[2017-08-31 12:11] LABS: ADD MAN DIFF? NO
[2017-08-31 12:27] LABS: WHITE BLOOD COUNT 13.3 10^3/ul (4.8-10.8)
[2017-08-31 12:27] LABS: BASOPHIL # 0.1 10^3/ul (0.0-0.1); BASOPHILS % 0.5 % (0.0-2.0); EOSINOPHILS # 0.2 10^3/ul (0.0-0.5); EOSINOPHILS % 1.7 % (0.0-7.0); HEMOGLOBIN 9.7 g/dl (14.0-18.0); LYMPHOCYTES # 1.4 10^3/ul (0.8-2.9); LYMPHOCYTES % 10.5 % (15.0-51.0); MEAN CORPUSCULAR HEMOGLOBIN 32.2 pg (29.0-33.0); MEAN CORPUSCULAR HGB CONC 33.4 g/dl (32.0-37.0); MEAN CORPUSCULAR VOLUME 96.3 fl (82.0-101.0); MEAN PLATELET VOLUME 10.9 fl (7.4-10.4); MONOCYTE # 1.5 10^3/ul (0.3-0.9); MONOCYTES % 11.1 % (0.0-11.0); NEUTROPHIL # 9.7 10^3/ul (1.6-7.5); NUCLEATED RED BLOOD CELLS # 0.1 10^3/ul (0.0-0.0); PLATELET COUNT 149 10^3/UL (140-415); RED BLOOD COUNT 3.01 10^6/ul (4.70-6.10); RED CELL DISTRIBUTION WIDTH 14.1 % (11.5-14.5)
[2017-08-31 12:32] LABS: ANION GAP 15 (8-16); BLOOD UREA NITROGEN 15 mg/dl (7-20); CALCIUM 7.6 mg/dl (8.4-10.2); CARBON DIOXIDE 20 mmol/L (21-31); CHLORIDE 109 mmol/L (97-110); CREATININE 0.67 mg/dl (0.61-1.24); GLUCOSE 138 mg/dl (70-220); POTASSIUM 3.8 mmol/L (3.5-5.1); SODIUM 140 mmol/L (135-144)
== END 2017-08-31 18:53 | disposition home or self-care (01) | DRG 233 ==
LOC: TEL 08-29 17:30 → E/R 09:09 → ICU 08-24 18:28 → MS3 09:45 → ICU 08-23 11:55 → TEL 08-29 17:41
PROVIDERS: Hospitalist
PROC: 4A023N7 Measurement of Cardiac Sampling and Pressure, Left Heart, Percutaneous Approach (ICD-10-PCS; 2017-08-23 10:30)
PROC: B211YZZ Fluoroscopy of Multiple Coronary Arteries using Other Contrast (ICD-10-PCS; 2017-08-23 10:30)
PROC: B215YZZ Fluoroscopy of Left Heart using Other Contrast (ICD-10-PCS; 2017-08-23 10:30)
PROC: 02100Z9 Bypass Coronary Artery, One Artery from Left Internal Mammary, Open Approach (ICD-10-PCS; principal; 2017-08-23 10:33)
PROC: 02100Z8 Bypass Coronary Artery, One Artery from Right Internal Mammary, Open Approach (ICD-10-PCS; 2017-08-23 10:33)
PROC: 021109W Bypass Coronary Artery, Two Arteries from Aorta with Autologous Venous Tissue, Open Approach (ICD-10-PCS; 2017-08-23 10:33)
PROC: 06BQ4ZZ Excision of Left Saphenous Vein, Percutaneous Endoscopic Approach (ICD-10-PCS; 2017-08-23 10:33)
PROC: 5A1221Z Performance of Cardiac Output, Continuous (ICD-10-PCS; 2017-08-23 10:33)
PROC: 30233R1 Transfusion of Nonautologous Platelets into Peripheral Vein, Percutaneous Approach (ICD-10-PCS; 2017-08-23 10:33)
PROC: 4A133R1 Monitoring of Arterial Saturation, Peripheral, Percutaneous Approach (ICD-10-PCS; 2017-08-23 10:33)
DX: I25.119 Atherosclerotic heart disease of native coronary artery with unspecified angina pectoris (principal); R57.0 Cardiogenic shock; I50.23 Acute on chronic systolic (congestive) heart failure; D61.818 Other pancytopenia; I11.0 Hypertensive heart disease with heart failure; I27.20 Pulmonary hypertension, unspecified; E11.9 Type 2 diabetes mellitus without complications; I25.5 Ischemic cardiomyopathy; E87.5 Hyperkalemia; R74.8 Abnormal levels of other serum enzymes; R13.10 Dysphagia, unspecified; I42.0 Dilated cardiomyopathy; Z87.891 Personal history of nicotine dependence; Z79.82 Long term (current) use of aspirin; Z79.84 Long term (current) use of oral hypoglycemic drugs
CPT/HCPCS: 36430; 36592; 36600; 71045; 71046; 76700; 78226; 80048; 80053; 80076; 81003; 82150; 82550; 82553; 82803; 82962; 82977; 83036; 83690; 83735; 83880; 84100; 84132; 84450; 84460; 84484; 85014; 85018; 85025; 85610; 85730; 86022; 86644; 86704; 86709; 86803; 86850; 86900; 86901; 86920; 87081; 87340; 93005; 93306; 93312; 93325; 93458; 93880; 94003; 94770; 96372; 97162; 99285-25

== ENCOUNTER → 2017-08-22 | Day surgery (SDC) | payer OTHER ==
[~2017-08-22] MED LIST: FENTAnyl 50 MCG/ML VIAL; FUROSEMIDE 20 MG INJ; FUROSEMIDE 40 MG INJ; HEPARIN 1000 UNITS/ML 10 ML INJ; IODIXANOL LOCM 100 ML BTL; LIDOCAINE 1% (MDV) 20 ML INJ; MIDAZOLAM 1 MG/ML 2 ML INJ; NITROGLYCERIN (IC) 100 MCG/ML INJ; PHENYLephrine (100 MCG/ML) 5ML SYG; PROVENTIL HFA 6.7GM INHALER; SOD CHLORIDE 0.9% 500 ML; VERAPAMIL 5 MG INJ
[2017-08-22 08:20] LABS: ADD MAN DIFF? NO
[2017-08-22 08:23] LABS: BASOPHIL # 0.1 10^3/ul (0.0-0.1); BASOPHILS % 1.1 % (0.0-2.0); EOSINOPHILS # 0.1 10^3/ul (0.0-0.5); EOSINOPHILS % 0.7 % (0.0-7.0); HEMATOCRIT 39.9 % (42.0-52.0); HEMOGLOBIN 13.7 g/dl (14.0-18.0); LYMPHOCYTES # 1.9 10^3/ul (0.8-2.9); LYMPHOCYTES % 17.6 % (15.0-51.0); MEAN CORPUSCULAR HEMOGLOBIN 32.4 pg (29.0-33.0); MEAN CORPUSCULAR HGB CONC 34.3 g/dl (32.0-37.0); MEAN CORPUSCULAR VOLUME 94.3 fl (82.0-101.0); MEAN PLATELET VOLUME 11.6 fl (7.4-10.4); MONOCYTE # 0.6 10^3/ul (0.3-0.9); MONOCYTES % 5.5 % (0.0-11.0); NEUTROPHIL # 8.2 10^3/ul (1.6-7.5); NEUTROPHILS % 74.6 % (39.0-77.0); PLATELET COUNT 144 10^3/UL (140-415); RED BLOOD COUNT 4.23 10^6/ul (4.70-6.10); RED CELL DISTRIBUTION WIDTH 12.2 % (11.5-14.5)
[2017-08-22 08:43] LABS: ANION GAP 21 (8-16); CARBON DIOXIDE 25 mmol/L (21-31); CHLORIDE 107 mmol/L (97-110); GLUCOSE 188 mg/dl (70-220)
[2017-08-22 08:46] LABS: INR 1.09; PROTIME 14.2 Sec (11.9-14.9); PT RATIO 1.1
[2017-08-22 08:47] LABS: PARTIAL THROMBOPLASTIN TIME 28.6 Sec (25.0-35.0)
[2017-08-22 08:50] LABS: BLOOD UREA NITROGEN 19 mg/dl (7-20); CALCIUM 9.3 mg/dl (8.4-10.2); CREATININE 0.84 mg/dl (0.61-1.24); POTASSIUM 4.6 mmol/L (3.5-5.1)
[2017-08-22 08:54] LABS: SODIUM 148 mmol/L (135-144)
[2017-08-22 10:58] LABS: B-TYPE NATRIURETIC PEPTIDE 4350 PG/ML (0-125)
[2017-08-22 10:58] LABS: TROPONIN-I 0.025 ng/ml (0.00-0.12)
== END | disposition home or self-care (01) ==
LOC: SDS 06:10
DX: I50.33 Acute on chronic diastolic (congestive) heart failure (principal); I42.9 Cardiomyopathy, unspecified; Z53.9 Procedure and treatment not carried out, unspecified reason; I10 Essential (primary) hypertension; E11.9 Type 2 diabetes mellitus without complications
CPT/HCPCS: 80048; 82962; 83880; 84484; 85025; 85610; 85730